=== PATIENT | female | born 1985 | race Caucasian/White ===

== ENCOUNTER 2017-11-20 13:33 | Emergency (ER) | payer BC, OTHER ==
[~2017-11-20] VITALS: Ht 152.4 cm; Wt 45.8 kg
[2017-11-20 13:47] VITALS: BP 127/88
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
[2017-11-20 16:03] VITALS: BP 127/88
== END 2017-11-20 15:54 | disposition home or self-care (01) ==
LOC: ER 13:33
DX: S00.83XA Contusion of other part of head, initial encounter (principal); Z88.0 Allergy status to penicillin; Z90.49 Acquired absence of other specified parts of digestive tract; Z98.51 Tubal ligation status; Y08.89XA Assault by other specified means, initial encounter; Y93.89 Activity, other specified; Y92.89 Other specified places as the place of occurrence of the external cause; Y99.8 Other external cause status
CPT/HCPCS: 70486; 99284